=== PATIENT | female | born 1990 | race African-American/Black ===

== ENCOUNTER 2017-06-15 14:57 | Emergency (ER) | payer MEDICAID ==
[~2017-06-15] VITALS: Ht 157.5 cm; Wt 87.1 kg
[2017-06-15 15:00] VITALS: BP 151/83
[2017-06-15] MEDS ORDERED: methylPREDNISolone SOD SUCC 125 MG/2 ML VL IM ONE (17:00)
[2017-06-15] MEDS ORDERED: cefTRIAXone SOD 1,000 MG VL IM ONE (17:00)
== END 2017-06-15 17:28 | disposition home or self-care (01) ==
LOC: ER 14:57
DX: J02.0 Streptococcal pharyngitis (principal)
CPT/HCPCS: 96372; 99284; J0696; J2930